=== PATIENT | male | born 1970 | race Asian ===

== ENCOUNTER 2023-03-30 13:16 | Emergency (ER) | payer OTHER ==
[~2023-03-30] VITALS: Ht 165.1 cm; Wt 100.0 kg
[~2023-03-30 13:16] MED LIST: ACTOS30 MG; ACTOS30 MG PO; AMARYL 2MG T2 MG/TAB; AMARYL 2MG T2 MG/TAB PO; CRESTOR 10MG10 MG PO; CRESTOR20 MG PO; LEVEMIR100 U/ML SC; LEVEMIR100 U/ML SQ; MICARDIS40 MG; MICARDIS40 MG PO; MIRALAX 255 GM255 GM; NO HOME MEDICATIONS; NORCO 325 MG-51 TAB PO; NOVOLOG 100U100 U/M1 SC; NOVOLOG 100U100 U/M1 SQ; PAXLOVID CO-PA1 EACH PO; PERCOCET 325 MG1 TA2 PO; PRAVACHOL 40MG40 MG; PRAVACHOL 40MG40 MG PO; PREDNISONE20 MG PO; PRINIVIL40 MG PO; PROZAC 20MG20 MG; REMERON 15M15 MG/TA1 PO
[2023-03-30 13:35] VITALS: TEMP 97.8
[2023-03-30 14:29] LABS: BASO # 0.1 K/mm3 (0.0-0.2); BASO % 0.8 % (0.0-2.0); EOS # 0.5 K/mm3 (0.0-0.7); EOS % 4.9 % (0.0-4.0); GRAN # 5.6 K/mm3 (1.4-6.5); GRAN % 53.3 % (42.2-75.2); HEMATOCRIT 49.2 % (42.0-52.0); LYMPH # 3.4 K/mm3 (1.2-3.4); LYMPH % 32.1 % (20.0-51.0); MEAN CELL VOLUME 91 fl (80.0-100.0); MEAN CORPUSCULAR HEMOGLOBIN 30 pg (27-31); MEAN CORPUSCULAR HGB CONC 33 g/dl (33.0-37.0); MEAN PLATELET VOLUME 9.1 fl (7.4-10.4); MONO # 0.9 K/mm3 (0.1-0.6); MONO % 8.1 % (1.7-9.3); PLATELET COUNT 343 K/mm3 (130-400); RED BLOOD COUNT 5.41 M/mm3 (4.20-5.60); REDCELL DISTRIBUTION WIDTH-CV 13.2 % (11.5-14.5)
[2023-03-30] MEDS ORDERED: methylPREDNISolone Sod Succ 125 MG/2 ML VIAL IV ONE (14:30)
[2023-03-30] MEDS ORDERED: Ondansetron 4 MG/2 ML VIAL IV PRN (14:30)
[2023-03-30] MEDS ORDERED: diphenhydrAMINE 50 MG/ML 1 ML VIAL IV ONE (14:30)
[2023-03-30] MEDS ORDERED: NS 1,000 ML IV ONE (14:30)
[2023-03-30] MEDS ORDERED: Morphine 4 MG/ML VIAL IV PRN (14:30)
[2023-03-30 14:50] LABS: BILIRUBIN,TOTAL 0.6 mg/dL (0.2-1.2); CALCIUM 9.7 mg/dL (8.4-10.2); CREATININE, serum 0.94 mg/dL (0.72-1.25); POTASSIUM 3.7 mmol/L (3.5-4.5); TOTAL PROTEIN 8.5 gm/dL (6.2-8.1)
[2023-03-30] MEDS ORDERED: PREDNISONE20 MG PO (15:42)
[2023-03-30] MEDS ORDERED: NORCO 325 MG-51 TAB PO (15:42)
[2023-03-30] MEDS ORDERED: ZOFRAN ODT4 MG PO (15:42)
[2023-03-30 15:57] VITALS: BP 165/75; PULSE 78
== END 2023-03-30 15:57 | disposition home or self-care (01) ==
LOC: COL.ER 13:16
PROVIDERS: Personal Emergency Response Attendant
DX: L30.9 Dermatitis, unspecified (principal); R10.11 Right upper quadrant pain; R11.0 Nausea; Z87.19 Personal history of other diseases of the digestive system; Z90.49 Acquired absence of other specified parts of digestive tract
CPT/HCPCS: J1200; J2270; J2405; J2930; J7030